=== PATIENT | male | born 1970 ===

== ENCOUNTER 2025-01-25 11:15 | Day surgery (SDC) | payer OTHER ==
[~2025-01-25 11:15] MED LIST: Propofol 200 MG/20 ML SDV ONE; Sodium Chloride 0.9% 10 ML Syringe FLUSH PRN
[2025-01-25] MEDS: Lactated Ringers 1,000 ML IV SCH (12:06)
== END 2025-01-25 13:02 | disposition home or self-care (01) ==
LOC: LL.SDS 11:15
PROVIDERS: ATTEND Surgery
DX: Z12.11 Encounter for screening for malignant neoplasm of colon (principal); D12.8 Benign neoplasm of rectum; Z80.0 Family history of malignant neoplasm of digestive organs
CPT/HCPCS: 45385; J2704; J7120; 00811